=== PATIENT | male | born 1935 | race Caucasian/White ===

== ENCOUNTER 2017-07-11 09:42 | Observation (INO) | payer MEDICARE, BC, OTHER ==
[~2017-07-11 09:42] MED LIST: ALEVE-D SINUS1 EACH PO; ASPIRIN 81 MG E81 MG PO; ASPIRIN81 MG PO; CARDURA2 MG PO; CENTRUM SILVER1 TA2 PO; COUMADIN5 MG PO; GLUCOTROL XL 5 M5 MG PO; HALDOL5 MG; HCTZ25 MG PO; HUMALOG 30100 UNITS/; LOPRESSOR25 MG PO; MICRO-K10 MEQ PO; MILK OF MAGNESI30 ML PO; NAMENDA10 MG PO; NAMENDA5 MG PO; NAPROXEN SODIUM PO; NEOSPORIN OINTM15 GM TP; PRINIVIL20 MG PO; RISPERDAL0.5 MG PO; RISPERDAL2 MG PO; TRIAMCINOLONE A60 M1 TP; TYLENOL 325 MG325 MG OR; TYLENOL 325 MG325 MG PO; ZOCOR20 MG PO; [UNRECOGNIZED DRUG - REMARK]
[2017-07-11 11:19] LABS: ALBUMIN 2.2 g/dL (3.4-5.0); ALKALINE PHOSPHATASE 85 U/L (46-116); ALT (SGPT) 66 U/L (10-68); BASOPHILS 0 % (0-2); BILIRUBIN - TOTAL 0.56 mg/dL (0.2-1.3); CALC OSMOLALITY 297 mosm/kg (275-300); CALCIUM 7.6 mg/dL (8.5-10.1); CARBON DIOXIDE 26.1 mmol/L (21.0-32.0); CHLORIDE - SERUM 108 mmol/L (98-107); CREATININE - SERUM 1.5 mg/dL (0.6-1.3); EOSINOPHILS 0 % (0-7); HEMATOCRIT 37.3 % (42.0-54.0); HEMOGLOBIN 12.5 g/dL (13.5-17.5); LYMPHOCYTES 12.2 % (15-50); MCH 31.3 pg (26.0-34.0); MCHC 33.5 g/dL (31.0-37.0); MCV 93.5 fL (80.0-100.0); MEAN PLATELET VOLUME 10.9 fL (7.4-10.4); MONOCYTES 6.6 % (2-11); NEUTROPHILS 80.2 % (40-80); PLATELET COUNT 187 10x3/uL (130-400); PROTEIN - SERUM 5.5 g/dL (6.4-8.2); RBC 3.99 10x6/uL (4.20-6.10); RDW 13.6 % (11.5-14.5); SODIUM 144 mmol/L (136-145); UREA NITROGEN 26 mg/dL (7-18); WBC 12.7 10x3/uL (4.8-10.8); eGFR NON AFRICAN AMERICAN 47 mL/min (90-120)
[2017-07-11 11:22] LABS: GLUCOSE 208 mg/dL (74-106)
[2017-07-11 11:25] LABS: APPEARANCE HAZY (CLEAR); BILIRUBIN NEGATIVE (NEGATIVE); COLOR YELLOW (YELLOW); GLUCOSE 50 mg/dL (NEGATIVE); KETONE NEGATIVE (NEGATIVE); NITRITE NEGATIVE (NEGATIVE); PROTEIN 1+ mg/dL (NEGATIVE)
[2017-07-11 11:30] LABS: AMYLASE - SERUM 61 U/L (25-115); CKMB 1.3 U/L (0.0-3.6); CREATINE KINASE 73 UL (21-232); LIPASE 235 U/L (73-393); TROPONIN-I 0.026 ng/mL (0.000-0.060)
[2017-07-11 11:32] LABS: BACTERIA FEW /hpf (NONE SEEN); EPITHELIAL CELLS 0-5 /hpf (0-5); HYALINE CAST 0-5 /lpf (NONE SEEN); MUCUS >1+ /lpf (NONE SEEN); RED CELLS - URINE 0-5 /hpf (0-5); WHITE CELLS - URINE RARE /hpf (0-5)
[2017-07-11 11:39] LABS: APTT 29.4 SECONDS (22.8-39.4); INR 2.4 (0.85-1.17); PROTIME 26.2 SECONDS (11.6-15.0)
[2017-07-11 14:52] LABS: CKMB 1.5 U/L (0.0-3.6); CREATINE KINASE 85 UL (21-232)
[2017-07-11 14:53] LABS: TROPONIN-I < 0.017 ng/mL (0.000-0.060)
--- NOTE | 2017-07-11 15:43 | NUR ---
PT ARRIVED TO ROOM VIA BED AND WALKED WITH ASSISTANCE TO BED. [place] IS NOT ON THE COMPUTER. IT CALLED AND MESSAGE LEFT. WILL COMPLETE MY ADMISSION ASSESSMENT. WILL CONTINUE TO MONITOR
[2017-07-11 15:57] VITALS: BP 146/98; BMI 26.7
--- NOTE | 2017-07-11 16:54 | NUR ---
CALLED [facility] AND SPOKE WITH SHANTANU KAY, TO FAX UPDATED MED RECORD. STATES SHE WILL FAX IT. WILL CONTINUE TO MONITOR
[2017-07-11] MEDS ORDERED: POT CHLORIDE TAB 10M (18:24)
[2017-07-11] MEDS ORDERED: LISINOPRIL TAB 20M (18:25)
[2017-07-11 19:45] LABS: CKMB 1.5 U/L (0.0-3.6); CREATINE KINASE 84 UL (21-232)
[2017-07-11 19:48] LABS: TROPONIN-I < 0.017 ng/mL (0.000-0.060)
[2017-07-11 20:30] VITALS: BP 167/104
[2017-07-12 01:44] VITALS: BP 150/70
[2017-07-12 03:22] LABS: BASOPHILS 0 % (0-2); EOSINOPHILS 0.6 % (0-7); HEMATOCRIT 41.5 % (42.0-54.0); HEMOGLOBIN 14.1 g/dL (13.5-17.5); IMMATURE GRANULOCYTES 0.6 % (0-5); LYMPHOCYTES 25.6 % (15-50); MCH 31.5 pg (26.0-34.0); MCV 92.8 fL (80.0-100.0); MEAN PLATELET VOLUME 11.3 fL (7.4-10.4); MONOCYTES 8.8 % (2-11); NEUTROPHILS 64.4 % (40-80); PLATELET COUNT 199 10x3/uL (130-400); RBC 4.47 10x6/uL (4.20-6.10); RDW 13.5 % (11.5-14.5); WBC 11.4 10x3/uL (4.8-10.8)
[2017-07-12 03:40] LABS: ALBUMIN 2.6 g/dL (3.4-5.0); ALKALINE PHOSPHATASE 96 U/L (46-116); ALT (SGPT) 73 U/L (10-68); BILIRUBIN - TOTAL 0.76 mg/dL (0.2-1.3); CALCIUM 8.6 mg/dL (8.5-10.1); CHLORIDE - SERUM 105 mmol/L (98-107); CKMB 1.4 U/L (0.0-3.6); CREATINE KINASE 116 UL (21-232); POTASSIUM - SERUM 3.8 mmol/L (3.5-5.1); PROTEIN - SERUM 6.3 g/dL (6.4-8.2); SODIUM 142 mmol/L (136-145); UREA NITROGEN 22 mg/dL (7-18)
[2017-07-12 03:41] LABS: CALC OSMOLALITY 283 mosm/kg (275-300); GLUCOSE 70 mg/dL (74-106); TROPONIN-I < 0.017 ng/mL (0.000-0.060); eGFR NON AFRICAN AMERICAN 76 mL/min (90-120)
--- NOTE | 2017-07-12 03:55 | NUR ---
18 FR ALEXIS CATHETER INSERTED AT THIS TIME. PT TOLERATED WELL. URINE LT YELLOW IN APPEARANCE. IVF INFUSING. BED ALARM IN PLACE. WILL MONITOR AND CPOC.
[2017-07-12 04:40] VITALS: BP 158/89
--- NOTE | 2017-07-12 05:51 | NUR ---
AM FSBS 70. PT RESTING IN BED. BED ALARM IN PLACE.
[2017-07-12 07:13] VITALS: BP 176/90
--- NOTE | 2017-07-12 08:04 | NUR ---
PT PULLED OUT HIS IV. 22G X 1 ATTEMPT STARTED IN RFA. IVF RESUMMED, NS @ 75ML/HR. DR PATEL IN ROOM ROUNDING ON PT.
[2017-07-12 12:57] VITALS: BP 146/87
[2017-07-12] MEDS ORDERED: LISINOPRIL10 MG PO (13:16)
--- NOTE | 2017-07-12 16:01 | NUR ---
Patient Name: STEVEN CABALLERO Admission Status: ER Accout number: [id number] Admission Date: 07-11-2017 : 1935 Admission Diagnosis: Attending: NATO PATEL Current LOS: 1 Anticipated DC Date: 07-12-2017 Planned Disposition: Assisted Living Primary Insurance: MEDICARE A & B PLANNED EXTERNAL PROVIDER: [facility] Discharge Planning Comments: * Is the patient Alert and Oriented? Yes 0 * How many steps to enter\exit or inside your home? NONE 0 * PCP DR. PATEL 0 * Pharmacy [facility] 0 * Preadmission Environment Other 0 * Other Environment [facility] * Facility Name [facility] 0 * ADLs Partial Dependent 0 * Partial ADLs (Assistance needed) Bathing Medication Management 0 * Equipment Rolling Walker 0 * Other Equipment [facility] - MEDICAL EQUIPMENT PROVIDER PREFERENCE 0 * List name and contact numbers for known caregivers / representatives who currently or will assist patient after discharge: NANCI CABALLERO, SON/POA, KRISTA CABALLERO, DTR IN LAW, 0 * Community resources currently utilized None 0 * Please name any agencies selected above. NONE 0 * Additional services required to return to the preadmission environment? No 0 * Can the patient safely return to the preadmission environment? Yes 0 * Has this patient been hospitalized within the prior 30 days at any hospital? No 0 CM RECEIVED DISCHARGE ORDER, MET WITH PT AND SON IN ROOM. PT NON COMMUNICATIVE, DOES SHAKE AND NOD HEAD TO SIMPLE YES AND NO QUESTIONS. PT'S SON REPORTS HE IS PT'S POA, PT LIVES AT [facility], HE HAS SPOKEN TO [facility] TODAY AND THEY WILL BE PICKING PT UP. PT HAS A ROLLING WALKER FROM [employer]. PT'S SON, NANCI, DENIES DISCHARGE NEEDS AT THIS TIME, JUST NEEDS HELP TO GET PT DRESSED TO GO HOME AND WILL CONTACT THE NURSES AIDE FOR THIS. CM CALLED [facility], , SPOKE TO ELIZA WHO STATES SHE NEEDS NURSE REPORT, CALL NEW MEDICATION IN TO [facility], FAX DISCHARGE INFORMATION IF CM HAS IT TO [phone]. VAN TO DIETARY WORKER PT AT ABOUT 3:45PM TODAY. PHARMACOVIGILANCE SAFETY EXPERT NOTIFIED. CM FAXED DISCHARGE INFORMATION TO [facility] AT [phone]. NURSE REPORT TO BE CALLED TO LEVON CHRISTIANSON TO DIETARY WORKER PT AT APPROXIMATELY 1545 HOURS. Investment Specialist: Fredrick Cruz Appended by Fredrick Cruz on 07/12/2017 16:00 CDT: CM REVIEWED THERAPY NOTES INDICATING PT MAX ASSIST IN BED. CM SPOKE TO PT'S SON IN ROOM AND EXPRESSED CONCERN THAT PT IS NOT ABLE TO ASSIST IN HIS CARE AND NEEDED TO BE ABLE TO DO SO AT [facility]. SON REPORTS THAT HE SPOKE TO [facility] AT [facility] AND WAS TOLD THAT IF PT CAN AT LEAST ASSIST WITH GETTING HIMSELF UP AND INTO A WHEELCHAIR FROM THE BED, HE CAN RETURN. PT'S SON IS HOPEFUL THAT HE WILL NOT HAVE TO PUT PT INTO A HALFWAY. [facility] LEFT TO GET PT SOME SWEAT PANTS AND WILL BE BACK SHORTLY. CM ASKED PT'S SON TO NOTIFY CM IF PT IS NOT ABLE TO ASSIST WITH TRANSFER WHEN [facility] GETS HERE, IF NOT, CM WILL ASSIST WITH PLACEMENT ELSEWHERE. CM TO FOLLOW AND ASSIST IF NEEDED. FREDRICK CRUZ, CASE MANAGEMENT
--- NOTE | 2017-07-12 16:40 | NUR ---
LETHARGIC. AROUSES TO STIMULI. SON AT BEDSIDE. DC ALEXIS BULB INTACT. REPORT CALLED TO ELIZA AT [facility]. DC RT WRIST IV TIP INTACT. FACILITY TRANSPORT ARRIVES. INDEPENDENTLY TRANSFERS SELF TO WHEELCHAIR. ESCORT VIA WHEELCHAIR. REMAINS FREE FROM INJURY.
== END 2017-07-12 16:47 | disposition home or self-care (01) ==
LOC: D.ER 09:42 → D.M2 15:15 → OBSVTIME 15:15 → D.M2 07-12 16:47
PROVIDERS: Family Medicine; ADMIT Family Medicine
DX: I95.1 Orthostatic hypotension (principal); E11.9 Type 2 diabetes mellitus without complications; E86.9 Volume depletion, unspecified; I25.10 Atherosclerotic heart disease of native coronary artery without angina pectoris; Z95.1 Presence of aortocoronary bypass graft; I48.2 Chronic atrial fibrillation; Z79.01 Long term (current) use of anticoagulants; M19.90 Unspecified osteoarthritis, unspecified site; W19.XXXA Unspecified fall, initial encounter; G30.9 Alzheimer's disease, unspecified; F02.80 Dementia in other diseases classified elsewhere, unspecified severity, without behavioral disturbance, psychotic disturbance, mood disturbance, and anxiety; E78.5 Hyperlipidemia, unspecified

== ENCOUNTER 2017-07-13 12:51 | Inpatient (IN) | payer MEDICARE, BC, OTHER ==
[~2017-07-13 12:51] MED LIST changes: +LISINOPRIL TAB 20M; +LISINOPRIL10 MG PO; +POT CHLORIDE TAB 10M
[2017-07-13 13:07] LABS: BASOPHILS 0.1 % (0-2); EOSINOPHILS 0.1 % (0-7); HEMATOCRIT 43.2 % (42.0-54.0); HEMOGLOBIN 14.6 g/dL (13.5-17.5); IMMATURE GRANULOCYTES 1.3 % (0-5); LYMPHOCYTES 20.8 % (15-50); MCH 31.5 pg (26.0-34.0); MCHC 33.8 g/dL (31.0-37.0); MCV 93.3 fL (80.0-100.0); MEAN PLATELET VOLUME 11.3 fL (7.4-10.4); MONOCYTES 6.1 % (2-11); NEUTROPHILS 71.6 % (40-80); PLATELET COUNT 213 10x3/uL (130-400); RBC 4.63 10x6/uL (4.20-6.10); RDW 13.8 % (11.5-14.5)
[2017-07-13 13:10] LABS: WBC 14.7 10x3/uL (4.8-10.8)
[2017-07-13 13:23] LABS: ALBUMIN 2.9 g/dL (3.4-5.0); ALKALINE PHOSPHATASE 113 U/L (46-116); ALT (SGPT) 72 U/L (10-68); CALCIUM 9.2 mg/dL (8.5-10.1); CARBON DIOXIDE 22.5 mmol/L (21.0-32.0); CHLORIDE - SERUM 103 mmol/L (98-107); POTASSIUM - SERUM 3.8 mmol/L (3.5-5.1); SODIUM 140 mmol/L (136-145); UREA NITROGEN 23 mg/dL (7-18)
[2017-07-13 13:26] LABS: CALC OSMOLALITY 292 mosm/kg (275-300); CREATININE - SERUM 1.6 mg/dL (0.6-1.3); GLUCOSE 276 mg/dL (74-106); eGFR NON AFRICAN AMERICAN 44 mL/min (90-120)
[2017-07-13 13:29] LABS: APTT 25.6 SECONDS (22.8-39.4); INR 1.92 (0.85-1.17); PROTIME 21.9 SECONDS (11.6-15.0)
[2017-07-13 13:34] LABS: CKMB 1.4 U/L (0.0-3.6); CREATINE KINASE 67 UL (21-232)
[2017-07-13 13:41] LABS: TROPONIN-I < 0.017 ng/mL (0.000-0.060)
[2017-07-13 14:42] LABS: APPEARANCE HAZY (CLEAR); BILIRUBIN NEGATIVE (NEGATIVE); COLOR YELLOW (YELLOW); GLUCOSE 1000 mg/dL (NEGATIVE); KETONE SMALL mg/dL (NEGATIVE); NITRITE NEGATIVE (NEGATIVE); PROTEIN NEGATIVE (NEGATIVE); UROBILINOGEN NORMAL (NORMAL)
[2017-07-13 14:44] LABS: EPITHELIAL CELLS RARE /hpf (0-5); RED CELLS - URINE 25-50 /hpf (0-5); WHITE CELLS - URINE 0-5 /hpf (0-5)
[2017-07-13 14:45] LABS: BACTERIA MODERATE /hpf (NONE SEEN); HYALINE CAST 0-5 /lpf (NONE SEEN)
--- NOTE | 2017-07-13 17:05 | NUR ---
RECEIVED TO ROOM 2222 FROM ER VIA GURNEY. TRANSFERRED TO BED IN ROOM. NABILA MAT, SCDs, AND TELEMETRY IN PLACE PER MYSELF. ALSO PUT ON BED ALARM ON. MED REC, HX, PHARMACY, AND EMERGENCY CONTACT INFO AND PASSWORD OBTAINED AND PLACED IN COMPUTER. CALL LIGHT IN REACH. WILL CONTINUE WITH PLAN OF CARE.
--- NOTE | 2017-07-13 17:18 | NUR ---
YELLOW BAND AND NONSKID SOCKS PLACED ON PATIENT PER HOSPITAL POLICY.
--- NOTE | 2017-07-13 17:32 | NUR ---
FSBS 115 SO NO COVERAGE REQUIRED. CALL LIGHT IN REACH.
[2017-07-13 18:14] VITALS: BP 163/81; BMI 24.9
--- NOTE | 2017-07-13 18:45 | NUR ---
PATIENT IS IN UNCAFIB @[address] STOKES. NEW ORDERS RECEIVED.
--- NOTE | 2017-07-13 18:52 | NUR ---
SPOKE WITH DR. VENEGAS ABOUT CONSULT AND UNCAFIB @ 146 BPM. NEW ORDERS RECEIVED.
[2017-07-13 19:30] VITALS: BP 153/83
--- NOTE | 2017-07-13 20:00 | NUR ---
ASSESSMENT PER FLOWSHEET. NO VERBAL RESPONSE. SPONTANEOUS MOVEMENT NOTED TO ARMS AND LEGS. VERY WEAK. BUTTOCK RED PLACED BUTT CREAM TO AREA. IV PATENT RT HAND OF D5NS AT 75CC'S/HR. ALEXIS TO BEDSIDE DRAINAGE WITH YELLOW URINE. O2 ON 2 L/M PER NC. TELM SHOWS UCAF WITH HR 120. SR UP X2 CALL LIGHT WITHIN REACH NABILA BED ALARM MAT ON AND BED ALARM BED ON.
--- NOTE | 2017-07-13 20:30 | NUR ---
DR. STOKES HERE TO SEE PATIENT.
--- NOTE | 2017-07-13 21:30 | NUR ---
CRUSHED MEDS AND GIVEN WITH TINY BIT OF APPLESAUCE. WITH MUCH ENCOURAGEMENT PATIENT DID SWALLOW MEDS HOB UP 45 DEGREES.
--- NOTE | 2017-07-13 22:00 | NUR ---
COMPLETE BED BATH WITH LINENS CHANGE DONE BY CLINIQUE COUNTER MANAGER'S. REPOSITIONED IN BED.
--- NOTE | 2017-07-13 23:00 | NUR ---
NOTIFIED WORKERS' COMPENSATION CLAIMS EXAMINER TO CHECK HEART RATE PULSE SHOWS 109 UNCAF. DIGOXIN 0.25MG IVP GIVEN ORDERED.
--- NOTE | 2017-07-13 23:10 | NUR ---
RECHECKED HEART RATE PER [employer] DATA LEAD SHOWS 99 CAF.
[2017-07-13 23:22] VITALS: BP 159/104
--- NOTE | 2017-07-14 00:45 | NUR ---
EYES CLOSED RESPIRATIONS WITH EASE AND UNLABORED NO CHANGES IN ASSESSMENT.
--- NOTE | 2017-07-14 03:08 | NUR ---
DIGOXIN 0.25MG IVP GIVEN ORDERED HR=89 CAF PER MT.
[2017-07-14 04:00] VITALS: BP 122/83
[2017-07-14 05:13] LABS: BASOPHILS 0.1 % (0-2); EOSINOPHILS 0 % (0-7); HEMATOCRIT 38.4 % (42.0-54.0); HEMOGLOBIN 13.1 g/dL (13.5-17.5); IMMATURE GRANULOCYTES 0.6 % (0-5); LYMPHOCYTES 15.5 % (15-50); MCH 31.3 pg (26.0-34.0); MCHC 34.1 g/dL (31.0-37.0); MCV 91.6 fL (80.0-100.0); MEAN PLATELET VOLUME 10.8 fL (7.4-10.4); NEUTROPHILS 75.8 % (40-80); PLATELET COUNT 213 10x3/uL (130-400); RBC 4.19 10x6/uL (4.20-6.10); RDW 13.7 % (11.5-14.5); WBC 14.7 10x3/uL (4.8-10.8)
[2017-07-14 05:39] LABS: CALCIUM 8.5 mg/dL (8.5-10.1); CARBON DIOXIDE 22.8 mmol/L (21.0-32.0); CHLORIDE - SERUM 109 mmol/L (98-107); POTASSIUM - SERUM 3.8 mmol/L (3.5-5.1); SODIUM 142 mmol/L (136-145); eGFR NON AFRICAN AMERICAN 76 mL/min (90-120)
[2017-07-14 05:52] LABS: CALC OSMOLALITY 288 mosm/kg (275-300); GLUCOSE 186 mg/dL (74-106); UREA NITROGEN 16 mg/dL (7-18)
[2017-07-14 05:53] LABS: INR 2.06 (0.85-1.17); PROTIME 23.3 SECONDS (11.6-15.0)
--- NOTE | 2017-07-14 06:00 | NUR ---
LQAU=158. REGULAR INSULIN 2 UNITS GIVEN SUBC LEFT ARM PER S/S.
--- NOTE | 2017-07-14 06:42 | NUR ---
TGYF=026.9 TYLENOL 650MG PO GIVEN CRUSHED AND GIVEN IN APPLESAUCE. TELM SHOWS CAF WITH H4 84. LAST DOSE OF LANOXIN 0.25 IVP GIVEN PRDERED.
--- NOTE | 2017-07-14 07:10 | NUR ---
IV TO RIGHT HAND D/C WITH CATH TIP INTACT DUE TO LEAKING. IV FLUIDS INITIATED TO LEFT HAND IV, SITE RE-DRESSED WITH TEGADERM. POSITIONED PT TO LEFT SIDE. ORAL CARE PROVIDED. PT REMAINS LETHARGIC WITH RESPIRATIONS EVEN AND NON LABORED. OXYGEN ON 2L VIA NC. ALEXIS PATENT AND DRAINING TO GRAVITY.
--- NOTE | 2017-07-14 09:30 | NUR ---
SPOKE WITH SHANTANU DEE AT DR PATEL'S OFFICE REGARDING PO MEDICATIONS AND PT'S INABILITY TO TAKE THEM SAFELY. SHE STATED THAT HE WOULD BE OVER THIS AFTERNOON TO ADDRESS MEDICATIONS.
[2017-07-14 09:37] VITALS: BP 175/80
--- NOTE | 2017-07-14 11:20 | NUR ---
IV RE-SITED TO RIGHT WRIST X1 ATTEMPT USING 22G IV CATHETER. IV TO LEFT WRIST LEAKING AROUND INSERTION SITE. D/C WITH CATH TIP INTACT. SON AT BEDSIDE.
[2017-07-14 12:58] VITALS: BMI 24.9
--- NOTE | 2017-07-14 14:29 | NUR ---
Patient Name: STEVEN CABALLERO Admission Status: ER Accout number: [id number] Admission Date: 07-13-2017 : 1935 Admission Diagnosis:SEPSIS, UNSPECIFIED ORGANISM Attending: NATO PATEL Current LOS: 1 Anticipated DC Date: 07-19-2017 Planned Disposition: Assisted Living Primary Insurance: MEDICARE A & B Discharge Planning Comments: CM CALLED PATIENTS SON (NANCI) REGARDING D/C NEEDS AND PLANS. SON STATED HIS DAD LIVES AT [facility] AND HOPES HE WILL BE ABLE TO RETURN THERE AT DISCHARGE. PATIENT WAS INDEPENDENT WITH HIS CARE AND WAS USING A WALKER. PATIENT IS A DIABETIC AND HAS A GLUCOMETER. PATIENTS PCP IS DR. PATEL AND PHARMACY IS [facility]. CM WILL CONTINUE TO FOLLOW PATIENT WITH D/C NEEDS AND PLANS. PCP DR. PATEL [facility] [phone] NANCI (TORRES) [phone] KRISTA (DIL) [phone] Adjunct Professor: Anita Vidales How many steps to enter\exit or inside your home? 0 0 * PCP DR. PATEL 0 * Pharmacy [facility] * Preadmission Environment [facility]isted [facility] 0 * Facility Name [facility] 0 * ADLs Partial Dependent 0 * Partial ADLs (Assistance needed) Medication Management 0 * Equipment Glucometer Walker 0 * List name and contact numbers for known caregivers / representatives who currently or will assist patient after discharge: NANCI (TORRES) [phone] KRISTA (DIL) [phone] 0 * Community resources currently utilized Assisted Living 0 * Please name any agencies selected above. [facility] 0 * Additional services required to return to the preadmission environment? Yes 0 * Can the patient safely return to the preadmission environment? Yes 0 * Has this patient been hospitalized within the prior 30 days at any hospital? No 0 Grand Total: 0
[2017-07-14 15:58] VITALS: BP 164/78
--- NOTE | 2017-07-14 16:35 | NUR ---
TAKEN FOR MRI AT THIS TIME.
[2017-07-14 20:00] VITALS: BP 159/105
--- NOTE | 2017-07-14 20:00 | NUR ---
REC'D IN ROOM LYING SUPINE IN BED. SR UP X2 CALL LIGHT WITHIN REACH. ALEXIS TO BEDSIDE DRAINAGE WITH YELLOW URIINE. IV PATENT LT WRIST WITH D5NS AT 75CC'S/HR PT REMAINS NPO AT THIS TIME. TELM. SHOWS UCAF WITH HR118.NABILA BED ALARM MAT ON AND BED ALARM BED ON. SCD'S ON B/P=159/105. TOO EARLY FOR PRN B/P MED WILL CONTINUE PLAN OF CARE. SPEECH REMAINS GARBLED SPONTANEOUS MOVEMENT OF EXTREMITIES DOES NOT FOLLOW COMMANDS.
--- NOTE | 2017-07-14 21:00 | NUR ---
PYIR=104 REGULAR INSULIN 4 UNITS GIVEN SUBC LEFT ARM PER S/S.
--- NOTE | 2017-07-14 21:57 | NUR ---
REPOSITIONED IN BED.
--- NOTE | 2017-07-14 22:00 | NUR ---
DR. ROUSE RADIOLOGIST PHONE RESULTS OF PT'S MRI. NOTIFIED DR. HUDSON DRAPERY INSPECTOR OF MRI RESULTS.
--- NOTE | 2017-07-14 23:32 | NUR ---
EYES CLOSED RESPIRATIONS WITH EASE AND UNLABORED. HOB UP 40 DEGREES.
[2017-07-15] VITALS: BP 182/89
[2017-07-15 05:21] LABS: BASOPHILS 0.1 % (0-2); EOSINOPHILS 0.1 % (0-7); HEMATOCRIT 40.3 % (42.0-54.0); HEMOGLOBIN 13.7 g/dL (13.5-17.5); IMMATURE GRANULOCYTES 0.5 % (0-5); MCH 31.2 pg (26.0-34.0); MCV 91.8 fL (80.0-100.0); MEAN PLATELET VOLUME 11.3 fL (7.4-10.4); MONOCYTES 8.7 % (2-11); NEUTROPHILS 72.6 % (40-80); PLATELET COUNT 219 10x3/uL (130-400); RBC 4.39 10x6/uL (4.20-6.10); RDW 13.8 % (11.5-14.5); WBC 16.1 10x3/uL (4.8-10.8)
[2017-07-15 05:26] VITALS: BP 133/79
[2017-07-15 05:30] LABS: INR 2.02 (0.85-1.17); PROTIME 22.9 SECONDS (11.6-15.0)
[2017-07-15 05:45] LABS: CALCIUM 8.2 mg/dL (8.5-10.1); CARBON DIOXIDE 25.2 mmol/L (21.0-32.0); CHLORIDE - SERUM 109 mmol/L (98-107); SODIUM 145 mmol/L (136-145); UREA NITROGEN 12 mg/dL (7-18); eGFR NON AFRICAN AMERICAN 76 mL/min (90-120)
[2017-07-15 05:46] LABS: CALC OSMOLALITY 289 mosm/kg (275-300); GLUCOSE 112 mg/dL (74-106); POTASSIUM - SERUM 3.2 mmol/L (3.5-5.1)
--- NOTE | 2017-07-15 06:34 | NUR ---
WPWB=325. NO COVERAGE.
--- NOTE | 2017-07-15 07:50 | NUR ---
ASSESSMENT PER FLOW SHEET.PT WITHOUT DISTRESS.HE IS NON RESPONSIVE TO VERBAL AND TACTILE STIMULI.DOOR OPEN TO MONITOR
[2017-07-15 08:00] VITALS: BP 157/85
[2017-07-15 12:29] VITALS: BP 163/84
[2017-07-15 16:13] VITALS: BP 176/84
--- NOTE | 2017-07-15 18:28 | NUR ---
REMAINS UNCHANGED FROM INITIAL SHIFT ASSESSMENT.CONT PLAN OF CARE
[2017-07-15 20:00] VITALS: BP 162/76
--- NOTE | 2017-07-15 21:36 | NUR ---
PATIENT TRACKED WITH HIS EYES WHEN THEY WERE MANUALLY OPEN. HAS A WET COUGH, SUCTIONED AND REMOVED SOME SALIVA. STILL WITH COUGH. UNABLE TO FOLLOW COMMANDS, DOES HAVE JERK MOVEMENTS IN ALL EXTREMITIES. HOB ELEVATED 30 DEGREES, TURNING Q2HR, NABILA ALARM ON, BEDRAILS UPx2, SCDs ON, NO NEEDS NOTED AT THIS TIME. WILL CONTINUE TO MONITOR.
[2017-07-16] VITALS: BP 159/77
--- NOTE | 2017-07-16 03:08 | NUR ---
DR GILBERT CALLED TO VERIFY THAT HE HAD RECIEVED THE CONSULT.
--- NOTE | 2017-07-16 03:30 | NUR ---
ASSESSED, PT IS ASLEEP WITH EASY RESPIRATIONS AND NO DISTRESS NOTED. HE HAS A ALEXIS CATH IN PLACE AND HIS O2 IS ORDERED. THE BED IS LOW, RAILS UP X'S 2 WITH THE CALL LIGHT AT HAND.
[2017-07-16 04:00] VITALS: BP 137/74
[2017-07-16 04:58] LABS: BASOPHILS 0.1 % (0-2); EOSINOPHILS 0 % (0-7); HEMATOCRIT 38.5 % (42.0-54.0); HEMOGLOBIN 13.1 g/dL (13.5-17.5); IMMATURE GRANULOCYTES 0.5 % (0-5); LYMPHOCYTES 21.8 % (15-50); MCH 31.3 pg (26.0-34.0); MCV 92.1 fL (80.0-100.0); MEAN PLATELET VOLUME 11.5 fL (7.4-10.4); MONOCYTES 9.3 % (2-11); NEUTROPHILS 68.3 % (40-80); PLATELET COUNT 239 10x3/uL (130-400); RBC 4.18 10x6/uL (4.20-6.10); RDW 14.1 % (11.5-14.5); WBC 13.7 10x3/uL (4.8-10.8)
[2017-07-16 05:06] LABS: INR 1.78 (0.85-1.17); PROTIME 20.7 SECONDS (11.6-15.0)
[2017-07-16 05:13] LABS: ANION GAP 11.3 mmol/L (8-16); CALCIUM 8.4 mg/dL (8.5-10.1); CREATININE - SERUM 1.1 mg/dL (0.6-1.3); POTASSIUM - SERUM 3.3 mmol/L (3.5-5.1)
--- NOTE | 2017-07-16 07:15 | NUR ---
REPORT RECEIVED FROM SQL PROGRAMMER ANALYST NURSE. CALL LIGHT IN REACH.
--- NOTE | 2017-07-16 09:10 | NUR ---
REPOSITIONED FOR COMFORT. BED ALARM AND NABILA MAT ON. NO DISTRESS NOTED AT THIS TIME. CALL LIGHT IN REACH.
[2017-07-16 09:38] VITALS: BP 188/91
--- NOTE | 2017-07-16 11:50 | NUR ---
CALLED TO ROOM BY SON. STATES THAT PATIENT IS MAKING A GURGLING NOISE IN HIS THROAT. HEAD OF BED ELEVATED MORE. PATIENT UNABLE TO FOLLOW COMMANDS TO COUGH. LESS GURGLING NOTED AFTER ELEVATING HEAD OF BED.
[2017-07-16 11:52] VITALS: BP 149/96
--- NOTE | 2017-07-16 12:55 | NUR ---
FSBS 169. WILL NOT COVER D/T NPO STATUS.
--- NOTE | 2017-07-16 13:42 | NUR ---
PATIENT RECIEVED 0.125 MG OF DIGOXIN IVP SLOWLY OVER 3 MINUTES. HR BEFORE 73 NS ON MONITOR. NO COMPLAINTS OR SIGNS OF DISTRESS. FAMILY AT BEDSIDE. CALL LIGHT WITHN REACH.
--- NOTE | 2017-07-16 15:40 | NUR ---
HOSPICE NURSE IN ROOM AT THIS TIME.
[2017-07-16] MEDS ORDERED: TRANSDERM-SCO1 PATCH TRANSDERM (15:45)
[2017-07-16] MEDS ORDERED: TYLENOL650 MG RC (15:46)
[2017-07-16] MEDS ORDERED: ATIVAN2 MG/ML IV (15:47)
[2017-07-16] MEDS ORDERED: ISOPTO ATROPINE5 ML SL (15:47)
[2017-07-16] MEDS ORDERED: MORPHINE P30 MG/30 M IV (15:48)
--- NOTE | 2017-07-16 17:59 | NUR ---
LATE ENTRY 1230 DR PATEL ADVISED [facility] THAT HE HAD WRITTEN AN ORDER FOR HOSPICE EVAL AND ADMIT. HE HAD SPOKEN WITH THE PATIENT' SON, NANCI CABALLERO. CM MET W/ THE SON. EXPLAINED THE PROCESS FOR [facility]. HE WAS AT THE BEDSIDE. CM CHECKED CONTACT PHONE NUMBERS FOR THE SON [phone] AND HIS , KRISTA CABALLERO - [phone]. THE SON ADVISED THAT HE HAD SPOKE WITH [facility] ON [address] SO THAT HOSPICE WOULD KNOW WHO TO CALL WHEN HIS FATHER PASSED. TC TO [facility] TO REQUEST EVALUATION. [facility] IS THE CONTRACTED PROVIDER FOR [facility] SERVICES. RECEIVED A CB FROM [facility] AT 1242. CLINICAL PACKET PREPARED W/ FACE SHEET AND MD ORDERS. 1400 THE HOSPICE NURSE WAS ON SITE. SHE HAD COMPLETED THE EVALUATION AND WAS WORKING ON THE [facility] ADMISSION.
--- NOTE | 2017-07-18 08:05 | HP ---
PATIENT: STEVEN CABALLERO MEDICAL RECORD: [id number] ACCOUNT: [id number] LOCATION:[id number] : 33 ADMISSION DATE: 07/13/17 HISTORY AND PHYSICAL EXAMINATION DATE OF ADMISSION: 07/13/2017 CHIEF COMPLAINT: "Went limp." HISTORY OF PRESENT ILLNESS: This is an 81-year-old white male who resides at [place], followed by Dr. Aguilar. He was eating lunch today and simply "went limp," basically his left arm would not work at all. 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 Chest x-ray showed nothing acute. EKG showed atrial fibrillation with a rapid ventricular response of 128 beats a minute. Urinalysis showed moderate bacteria but no leukocyte esterase or nitrite. White count was elevated at 14,000. Lactic acid elevated at 4.0. His INR is 1.92 on Coumadin. Differential diagnosis includes acute stroke and possible sepsis. He is admitted to the hospital. PAST MEDICAL HISTORY: Arthritis, heart disease, dementia, hypertension, hyperlipidemia, diabetes, cataracts, and atrial fibrillation. PAST SURGICAL HISTORY: Coronary artery bypass surgery, cataract repair, right inguinal hernia repair. ALLERGIES: ATRACURIUM. HOME MEDICATIONS: Potassium 10 mEq twice a day, HCTZ 25 mg once a day, lisinopril 10 mg once a day, doxazosin 2 mg once a day, Glucotrol-XL 5 once a day, Zocor 20 mg once a day, enteric-coated aspirin 81 mg once a day, multivitamin once a day, Risperdal 0.5 twice a day, warfarin 5 mg once a day, Namenda 5 mg once a day, milk of magnesia p.r.n., Lopressor 25 mg twice a day, Tylenol as needed for pain or fever, and Humalog sliding scale. FAMILY HISTORY: Really unknown. SOCIAL HISTORY: He is , living in [place]. Again, retired. HABITS: No alcohol or drugs. Smoking, he was a previous smoker. REVIEW OF SYSTEMS: Unknown on this patient who is really not able to talk to me much. PHYSICAL EXAMINATION: VITAL SIGNS: Temperature 99.7, pulse 120, respirations 21, blood pressure 153/83, O2 sat 99%. GENERAL: He is lying comfortably in his hospital bed. He has a tremor to his right hand and arm. He will try to open his eyes when I speak to him or rub his sternum. HEAD, EYES, EARS, NOSE, AND THROAT: Unremarkable. NECK: No JVD or bruit. HEART: Irregularly irregular with rapid rate. LUNGS: Fairly clear. ABDOMEN: Soft. He does not respond as if in pain. HISTORY AND PHYSICAL [id number] STEVEN CABALLERO EXTREMITIES: No edema. He has SCDs in place. NEUROLOGIC: "I don't know what his baseline is. He has a history of dementia. He will raise his eye brows and will open his eyes a little. He will sometimes squeeze my finger with his right hand, but his left hand and arm do not respond to me, although he did move his left arm in a nonpurposeful way when I was examining him. He also lifted his left leg and right leg as well. LABORATORY DATA: CT of the head, mild diffuse atrophy with a previous infarction, right middle cerebral artery. This is compared to CT just done a couple of days ago and showed no change. Chest x-ray shows no acute problems. EKG: Atrial fibrillation with rapid ventricular response with a rate of 128. Urinalysis - yellow, hazy, 2+ blood, leukocyte esterase negative, moderate bacteria. Lactic acid 4.0. CBC with a white count of 14,700, hemoglobin 14.6, hematocrit 43.2, platelets are normal. His INR is 1.92. His basic metabolic panel is all okay except glucose was 276. Liver Enzymes: AST 32, ALT 72. Cardiac enzymes are negative. ASSESSMENT: 1. Baseline dementia with encephalopathy today. 2. Left arm weakness. 3. Bacteriuria. 3. Likely sepsis. PLAN: Blood and urine cultures have been done. He started on Rocephin and Levaquin IV, is on insulin sliding scale. Cardiology was consulted for his uncontrolled atrial fibrillation. Other tests and procedures as warranted. TRANSINT:[id number] Voice Confirmation ID: [id number] DOCUMENT ID: [id number] CORBIN STOKES MD at 0805 CC: [id number] DICTATION DATE: 07/13/172009 DRY END TESTER: 07/13/17 2257 DIS IN 07/16/17 [place] [id number] [place] [address]
--- NOTE | 2017-08-15 13:40 | DS ---
PATIENT:STEVEN CABALLERO :31 MEDICAL RECORD: [id number] DISCHARGE SUMMARY ADMISSION DATE: 07/13/17 DISCHARGE DATE: 07/16/17 DATE OF ADMISSION: 07/13/2017 DATE OF DISCHARGE: 07/16/2017 to inpatient hospice. ADMITTING DIAGNOSIS: Atrial fibrillation. PRINCIPAL DIAGNOSIS: Atrial fibrillation. OTHER DIAGNOSES: Include encephalopathy, cerebral infarction, acute kidney failure, systemic inflammatory response syndrome of noninfectious origin, dehydration, Alzheimer disease, hyperlipidemia, atherosclerotic heart disease of [place] coronary artery without angina pectoris I25.10. HOSPITAL COURSE: The patient was not doing well, was in fact declining and so inpatient hospice was consulted. Hospice approved transfer. The patient was discharged to inpatient hospice. CONSULTATIONS: Cardiology, Dr. Rolon. CONDITION: Declining. DISPOSITION: Discharged to inpatient hospice. MEDICATION LIST: Please refer to the patient's discharge medication reconciliation form. TRANSINT:[id number] Voice Confirmation ID: [id number] DOCUMENT ID: [id number] NATO PATEL MD at [id number] CC: [id number] DICTATION DATE: 08/14/17 1301 REPRODUCER: 08/15/17 0344 DIS IN 07/16/17 [facility] [address] [place] [address]
== END 2017-07-16 16:18 | disposition hospice, inpatient (51) | DRG 64 ==
LOC: D.ER 12:51 → D.MS 14:57
PROVIDERS: Emergency Medicine; Family Medicine; ADMIT Family Medicine
DX: I63.9 Cerebral infarction, unspecified (principal); G93.40 Encephalopathy, unspecified; N17.9 Acute kidney failure, unspecified; R65.10 Systemic inflammatory response syndrome (SIRS) of non-infectious origin without acute organ dysfunction; I48.91 Unspecified atrial fibrillation; E86.0 Dehydration; G30.9 Alzheimer's disease, unspecified; F02.80 Dementia in other diseases classified elsewhere, unspecified severity, without behavioral disturbance, psychotic disturbance, mood disturbance, and anxiety; E78.5 Hyperlipidemia, unspecified; I25.10 Atherosclerotic heart disease of native coronary artery without angina pectoris; R40.2353 Coma scale, best motor response, localizes pain, at hospital admission; R40.2243 Coma scale, best verbal response, confused conversation, at hospital admission; R40.2143 Coma scale, eyes open, spontaneous, at hospital admission; R40.2333 Coma scale, best motor response, abnormal flexion, at hospital admission

== ENCOUNTER 2017-07-16 15:30 | Inpatient (IN) | payer OTHER ==
[~2017-07-16] VITALS: Ht 170.2 cm; Wt 71.8 kg
[2017-07-16] MEDS ORDERED: TRANSDERM-SCO1 PATCH TRANSDERM (15:45)
[2017-07-16] MEDS ORDERED: TYLENOL650 MG RC (15:46)
[2017-07-16] MEDS ORDERED: ISOPTO ATROPINE5 ML SL (15:47)
[2017-07-16] MEDS ORDERED: ATIVAN2 MG/ML IV (15:47)
[2017-07-16] MEDS ORDERED: MORPHINE P30 MG/30 M IV (15:48)
--- NOTE | 2017-07-16 16:33 | NUR ---
RECEIVED TO HOSPICE. NEW ORDERS RECEIVED.
[2017-07-16 16:41] VITALS: BP 154/82
[2017-07-16 18:05] VITALS: BP 154/82; Ht 170.2 cm; Wt 71.8 kg
--- NOTE | 2017-07-16 18:05 | NUR ---
SCOPOLAMINE PATCH TO SKIN BEHIND LEFT EAR. MORPHINE SKEIN BANDER INITIATED. CALL LIGHT IN REACH. WILL CONTINUE WITH PLAN OF CARE.
[2017-07-16 22:03] VITALS: BP 149/81
--- NOTE | 2017-07-17 01:14 | NUR ---
NO CHANGES IN PATIENT'S SEDATION STATUS. RESTING COMFORTABLY. NO VISIBLE SIGNS OF DISTRESS.
--- NOTE | 2017-07-17 03:00 | NUR ---
HOSPICE PT RESTING QUIETLY. NO DISTRESS NOTED. CONTINUE PROCESSING INSPECTOR'S PLAN OF CARE.
--- NOTE | 2017-07-17 07:00 | NUR ---
PATIENT IN BED WITH IV INTACT. PATIENT EYES CLOSED WITH NO COMPLAINTS OR SIGNS OF DISTRESS. CALL LIGHT WITHIN REACH.
--- NOTE | 2017-07-17 07:10 | NUR ---
REPORT RECEIVED FROM CONSULTING TECHNICAL DIRECTOR NURSE. CALL LIGHT IN REACH.
--- NOTE | 2017-07-17 08:00 | NUR ---
CONTINUOUS TOWING PILOT DOSE CHANGED TO 1 MG/HR.
[2017-07-17 08:10] VITALS: BP 138/77
--- NOTE | 2017-07-17 09:15 | NUR ---
ASSESSMENT COMPLETED. NO DISTRESS NOTED. CALL LIGHT IN REACH.
--- NOTE | 2017-07-17 11:19 | NUR ---
REPOSITIONED ON RIGHT SIDE WITH ASSISTANCE FROM [facility] CHIE[facility] UNIT FORESTER. TREMORS SO ATIVAN 1 MG SIVP. DAUGHTER IN ROOM. CALL LIGHT IN REACH.
--- NOTE | 2017-07-17 13:20 | NUR ---
NO DISTRESS NOTED AT THIS TIME. PLACED ON LEFT SIDE. CALL LIGHT IN REACH.
--- NOTE | 2017-07-17 15:51 | NUR ---
PLACED ON BACK FOR COMFORT. FAMILY ASKING ABOUT THE TIME THAT HOSPICE WILL GET HERE TODAY. I TOLD THEM I WOULD TRY TO FIND OUT ABOUT IT. VERBALIZED UNDERSTANDING.
--- NOTE | 2017-07-17 16:24 | NUR ---
FAMILY WANTING TO TALK TO HOSPICE NURSE. THEY HAVE BEEN HERE WAITING ON HER ALL DAY. [facility] CALLED AND PAGE PUT OUT TO NURSE.
--- NOTE | 2017-07-17 16:40 | NUR ---
SPOKE TO HOSPICE NURSE. NOTIFIED FAMILY OF WHAT SHE SAID.
--- NOTE | 2017-07-17 18:07 | NUR ---
WAITING ON HOSPICE NURSE TO SEE PATIENT. NO CHANGES IN INITIAL ASSESSMENT EXCEPT FOR RESPIRATIONS SLOWING DOWN. FAMILY IN ROOM. BED ALARM AND NABILA MAT ON. CALL LIGHT IN REACH. WILL CONTINUE WITH PLAN OF CARE.
--- NOTE | 2017-07-17 18:12 | NUR ---
DR. ROJAS IN ROOM TO SEE THE PATIENT. NO CHANGES IN INITIAL ASSESSMENT EXCEPT FOR RESPIRATIONS SLOWING DOWN. FAMILY IN ROOM. BED ALARM AND NABILA MAT ON. CALL LIGHT IN REACH. WILL CONTINUE WITH PLAN OF CARE.
[2017-07-17 22:33] VITALS: BP 152/89
--- NOTE | 2017-07-18 03:00 | NUR ---
HOSPICE PT RESTING, EYES CLOSED. COMFORT MEASURES ONLY. NO DISTRESS. CONTINUE AVIONICS SAFETY INSPECTOR'S PLAN OF CARE.
[2017-07-18 09:29] VITALS: BP 143/82
--- NOTE | 2017-07-18 10:31 | NUR ---
ASSESSMENT PER FLOW SHEET.PT IS NON RESPONSIVE. APPEARS TO BE WITHOUT DISTRESS.FAMILY IS AT BEDSIDE. MONITOR FOR NEEDS
--- NOTE | 2017-07-18 20:00 | NUR ---
ASSESSMENT PER FLOWSHEET. NO VERBALIZATION. RT ARM AND LEG WITH OCCASIONAL TREMORS NOTED. IV PATENT RT WRIST OF NS AT 30CC'S/HR. MORPHINE FIELD ARTILLERY OFFICER AT 1MG/HR CONTINUOUSLY. ALEXIS TO BS DRAINAGE WITH CONCHIS URINE. NPO HOB UP 30 DEGREES. SR UP X3 CALL LIGHT WITHIN REACH NABILA BED ALARM ON. FAMILY AT BEDSIDE. PT NPO. PT NOT AWAKE DOES NOT FOLLOW COMMANDS.
--- NOTE | 2017-07-18 21:00 | NUR ---
FAMILY MEMBERS DECLINED TURNING AT THIS TIME.
--- NOTE | 2017-07-18 23:53 | NUR ---
RESTLESS MOANING. FAMILY REQUESTING MED. ATIVAN 1MG IVP GIVEN FOR RESTLESSNESS.
[2017-07-19] VITALS: BP 143/85
--- NOTE | 2017-07-19 00:42 | NUR ---
EYES CLOSED RESPIRATIONS WITH EASE NO CHANGES IN ASSESSMENT.
--- NOTE | 2017-07-19 01:00 | NUR ---
SUCTIONED ORALLY AND NASALY MODERATE AMOUNT CLEAR SECRETIONS REMOVED.
--- NOTE | 2017-07-19 01:12 | NUR ---
MODERATE AMOUNT OF WET SECRETIONS ATROPINE 2 GTTS GIVEN SUBL TO HELP DRY UP SECRETIONS FAMILY AT BEDSIDE.
--- NOTE | 2017-07-19 02:40 | NUR ---
RESTLESS ATIVAN 1 MG IVP GIVEN FOR RESTLESSNESS. ERASMOTHER REQUESTED NURSE TO CALL HOSPICE NURSE TO GET MORE PAIN MEDS. PLACED A CALL TO [facility] AD SPOKE WITH NURSE. MAY GIVE PT BOLUS IF NEEDED.WHEN FAMILY INFORMED OF BOLUS THEY DECIDED NOT TO GIVE A BOLUS AT THIS TIME.
--- NOTE | 2017-07-19 04:45 | NUR ---
EYES CLOSED REPOSTIONED IN BED.
--- NOTE | 2017-07-19 06:05 | NUR ---
SUCTIONED ORALLY AND NASALY. SMALL AMOUNT OF SECRESTIONS RETURNED.FAMILY MEMBERS AT BEDSIDE.
--- NOTE | 2017-07-19 08:00 | NUR ---
ASSESSMENT PER FLOW SHEET.PT IS RESTING WITHOUT SIGNS OF DISTRESS AT PRESENT.FAMILY IS AT BEDSIDE.MONITOR FOR NEEDS
--- NOTE | 2017-07-19 12:55 | NUR ---
HOSPICE NURSE TO SEE PT. IV BOLUS OF PAIN MEDS PER CHLOE BROWN PER HOSPICE NURSE REQUEST.PT HAS SOME MOANING AT PRESENT.
--- NOTE | 2017-07-19 13:30 | NUR ---
IV ATIVAN PER HOSPICE NURSE REQUEST, PT STILL HAVING SMALL AMOUNTS OF MOANING. MONITOR
--- NOTE | 2017-07-19 18:58 | NUR ---
WITHOUT DISTRESS AT PRESENT. REMAINS WITHOUT CHNAGE FROM INITIAL ASSESSMENT. CONT PLAN OF CARE
[2017-07-19 20:00] VITALS: BP 138/80
--- NOTE | 2017-07-19 20:00 | NUR ---
ASSESSMENT UT FLOWSHEET. PATIENT UNRESPONSIVE AT THIS TIME. FAMILY AT BEDSIDE. IV PATENT RT WRIST OF NS AT 30CC'S/HR. SANDER SETTER OF MORPHINE IN USE WITH SETTINGS AT 1.5MG/HR CONTINUOUSLY. ALEXIS TO BEDSIDE DRAINAGE WITH DARK CONCHIS URINE.
--- NOTE | 2017-07-19 22:20 | NUR ---
MQN=987.9 AX TYLENOL 650MG SUPP. GIVEN RECTALLY FOR FEVER. REPOSITIONED IN BED.
--- NOTE | 2017-07-20 02:15 | NUR ---
RECHECKED ZWMM=323.5(AX) COOL CLOTH TO FOREHEAD TOO EARLY FOR TYLENOL SUPP. WILL CONTINUE PLAN OF CARE.
[2017-07-20 08:29] VITALS: BP 128/68
--- NOTE | 2017-07-20 08:30 | NUR ---
ASSESSMENT PER FLOW SHEET.PT WITHOUT DISTRESS AT PRESENT.FAMILY AT BEDSIDE.MONITOR FOR NEEDS.
--- NOTE | 2017-07-20 11:44 | NUR ---
CALLED TO ROOM BY FAMILY.PT HAS DECREASED RESP WITH 20 SECONDS BETWEEN BREATHS.WHILE I WAS IN ROOM PT TOOK A BREATH, THEN BREATHING STOPPED. CALL TO [facility]
--- NOTE | 2017-07-20 13:10 | NUR ---
PRONOUNCED BY DR ROJAS. [facility]OS[facility] NURSE TO CALL
--- NOTE | 2017-07-20 14:18 | NUR ---
[facility] HOME HERE.PATIENTS BODY TO [facility]
== END 2017-07-20 14:22 | DRG 951 ==
LOC: D.MS 15:30
PROVIDERS: ADMIT Legal Medicine
DX: Z51.5 Encounter for palliative care (principal)